=== PATIENT | female | born 1955 | race Caucasian/White ===

== ENCOUNTER → 2017-04-18 | Outpatient (CLI) | payer OTHER, BC | END | disposition disaster alternative care site (69) | LOC: GRAD 15:29 | DX: S13.4XXA Sprain of ligaments of cervical spine, initial encounter (principal); M54.2 Cervicalgia; M47.892 Other spondylosis, cervical region; M48.02 Spinal stenosis, cervical region; R20.2 Paresthesia of skin; R29.898 Other symptoms and signs involving the musculoskeletal system ==